=== PATIENT | female | born 1950 | race Caucasian/White ===

== ENCOUNTER → 2016-12-12 | Day surgery (SDC) | payer OTHER ==
[2016-11-21 14:49] VITALS: Ht 164.5 cm; Wt 68.2 kg
[~2016-12-12] VITALS: Ht 164.5 cm; Wt 68.2 kg
[~2016-12-12] MED LIST: ASCA500 PO; ASPI81TA28 PO; ATROPINE SULFATE 0.1 MG/ML 5ML SYR IV PRN; BIOTCAP2 PO; BUPIVACAINE/EPINEPHRINE 0.25% 1:200,000 30 ML VIAL ONE; CALC500T83 PO; CEFAZOLIN 2000 MG/60 ML D5W IV SCH; CHOL1000 PO; EpHEDrine SULFATE INJ 50 MG/ML AMP IV PRN; EpINEphrine INJ 1MG/ML AMP 1 MG/ML AMP ONE; FENTANYL CITRATE INJ 50 MCG/1 ML 2 ML VIAL IV PRN; FENTANYL CITRATE INJ 50 MCG/1 ML 2 ML VIAL ONE; KETO10TA PO; LACTATED RINGER'S 1000ML 1,000 ML IV SCH; LEVO75TA5 PO; LIDOCAINE HCL 2% 2 ML VIAL (20MG/ML) ONE; METHYLPREDNISOLONE ACETATE 80 MG/ML VIAL ONE; MIDAZOLAM HCL 1 MG/ML 2ML VIAL ONE; OMEG10007 PO; ONDANSETRON INJ 2 MG/ML 2 ML VIAL IV PRN; OXYC-57 PO; OXYCODONE/ACETAMINOPHEN 5-325 TAB PO PRN; PROPOFOL IV EMULSION 10 MG/ML 20 ML VIAL IV ONE; ROPIVACAINE 0.5% 5 MG/ML 30 ML VIAL ONE; SODIUM CHLORIDE 0.9% 1000ML 1,000 ML IV SCH
--- NOTE | 2016-12-12 09:22 | History & Physical Bridge - [place] ---
H&P Re-Evaluation Bridge Note: I have examined the patient, reviewed the History & Physical and in the interval since the performance of the History & Physical I have noted the following changes of clinical significance: No changes noted
[2016-12-12 12:08] VITALS: TEMP 36.6
--- NOTE | 2016-12-12 12:08 | Discharge Instructions-SurgCtr ---
Discharge Instructions Date of Service Dec 12, 2016. Visit Reason for Visit: Right Shoulder Adhesive Capsulitis, Pain Discharge Discharge Diagnosis / Problem: SAME ASBOVE Discharge Goals Goal(s): Decrease discomfort, Improve function Medications Stopped Medications Name(s): Pt. was told not to take any ASA or Nsaids or Fish Oil before surgery. Restart Stopped Medication(s): MAY RESTART WHEN FINISHED WITH TORADOL Activity Recommendations Activity Limitations: as noted below Lifting Limitations: gradually increase as tolerated Exercise/Sports Limitations: gradually increase as tolerated Driving or Machine Use: WHEN OUT OF THE SLING Anesthesia . Post Anesthesia Instructions: If you have had General Anesthesia or IV Sedation: * Do not drive today. * Resume driving when surgeon permits. * Do not make important decisions or sign legal documents today. * Call surgeon for: 1. Temperature elevations greater than 101 degrees F. 2. Uncontrollable pain. 3. Excessive bleeding. 4. Persistent nausea and vomiting. 5. Medication intolerance (nausea, vomiting or rash). * For nausea and vomiting use only clear liquids such as: tea, soda, bouillon until nausea subsides, then gradually increase diet as tolerated. * If you have any concerns or questions, call your surgeon's office. If physician is unavailable and it is an emergency, call 911 or go to the nearest emergency room. . Instructions / Follow-Up Instructions / Follow-Up MEDICATIONS: * Resume previous medications unless instructed otherwise by your surgeon. * Always take pain medication on a full stomach or with food to avoid upset stomach. * Do not drink alcohol or drive while taking narcotics. * Ibuprofen or Tylenol may be taken if narcotic not needed. SPECIAL CARE INSTRUCTIONS: __ None _X_ Keep extremity elevated and iced x 48 hours; apply ice 20-30 minutes 8-10 times/day. May remove at night. _X_ Sling ( NEEDED FOR COMFORT) __24 hrs/day __ Remove at night __ Shoulder Immobilizer __ 24 hrs/day __ Remove at night _X_ Dressing __ Maintain until seen in office, may shower with plastic over site _X_ Remove dressings in 24-48 hours and then may shower _X_ Cover incisions with band-aids after showering __ Do not remove steri-strips Call physician if chills or temperature rises above 102 degrees or pain unrelieved by prescribed pain medications at . . Diet Recommendations Home Diet: no limitations Fluid Restriction: None Procedures Procedures Performed: Right Shoulder Arthroscopic Capsular Release Pending Studies Studies pending at discharge: no Work Instructions Lifting Limitations: none Medical Emergencies . Who to Call and When: Medical Emergencies: If at any time you feel your situation is an emergency, please call 911 immediately. . Non-Emergent Contact Non-Emergency issues call your: Primary Care Provider Call Non-Emergent contact if: you have a fever, temperature is above 101.5 . . "Provider Documentation" section prepared by Seth Eid. .
[2016-12-12 12:39] VITALS: BP 119/73; PULSE 60; O2SAT 100
--- NOTE | 2016-12-12 12:46 | Anesthesiology Progress Note ---
Anesthesia Post Op Note Date & Time Dec 12, 2016 at 12:46 Vital Signs Pain Intensity: 0 Vital Signs Past 12 Hours Date Time Temp Pulse Resp B/P (MAP) Pulse Ox O2 Delivery O2 Flow Rate FiO2 12/12/16 12:39 60 16 119/73 (88) 100 Room Air 12/12/16 12:08 36.6 67 18 109/68 (82) 95 Room Air 12/12/16 11:40 0 12/12/16 11:35 54 12/12/16 11:35 54 12 100 12/12/16 11:31 133/75 12/12/16 11:30 58 12/12/16 11:30 57 10 100 12/12/16 11:26 152/84 12/12/16 11:25 65 29 97 12/12/16 11:25 65 12/12/16 11:20 59 0 12/12/16 11:15 61 0 12/12/16 11:10 21 12/12/16 11:10 58 21 12/12/16 08:52 36.6 71 16 138/80 (99) 98 Room Air Notes Mental Status: alert / awake / arousable, participated in evaluation Pt Amnestic to Procedure: Yes Nausea / Vomiting: adequately controlled Pain: adequately controlled Airway Patency, RR, SpO2: stable & adequate BP & HR: stable & adequate Hydration State: stable & adequate Anesthetic Complications: no major complications apparent
--- NOTE | 2016-12-12 13:02 | [facility] Post Operative Brief Note ---
Immediate Operative Summary Operative Date Dec 12, 2016. Pre-Operative Diagnosis Right shoulder adhesive capsulitis Post-Operative Diagnosis Same as preop Procedure(s) Performed Right Shoulder Arthroscopic Capsular Release Surgeon Dr. Kulkarni Driveway Attendant Surgeon(s) Seth Eid PA-C Estimated Blood Loss 5 mL Findings as above Specimens None Complication(s) None Disposition Recovery Room / PACU
--- NOTE | 2016-12-12 13:16 | OPERATIVE REPORT ---
DATE OF OPERATION: 12/12/2016 PREOPERATIVE DIAGNOSIS: Adhesive capsulitis of the right shoulder. POSTOPERATIVE DIAGNOSIS: Same. PROCEDURE: Right shoulder diagnostic arthroscopy with extensive debridement and lysis of adhesions and manipulation under anesthesia. SURGEON: Dr. Vivek Kulkarni. BULK PALLET BUILDER: Seth Eid PA-C, whose assistance was necessary for positioning of the arm and helping with instrumentation. ANESTHESIA: Sedation with a right interscalene nerve block. COMPLICATIONS: None. CONDITION: Stable to PACU. INDICATIONS: Lizz is a 66-year-old female who is an avid pickleball player. She has been noticing increased pain and tightness of her right shoulder. MRI and clinical examination were diagnostic for adhesive capsulitis of the right shoulder. After failing conservative treatment, she elected to undergo arthroscopy. PROCEDURE IN DETAIL: On 12/12/2016, she arrived at [facility] for the above procedure. She was seen in the preoperative holding area and the operative extremity was identified and signed. She was given a preoperative antibiotic and a right interscalene nerve block. She was taken back to the operating room, laid on the table in supine position and given basic sedation. The right shoulder was then prepped and draped in sterile fashion. Time-out was done and the patient and operative extremity was properly identified. On preoperative physical examination, she had about 80 degrees of abduction, 30 degrees of external rotation. Gentle manipulation was done under anesthesia to facilitate insertion of the arthroscope. The scope was then put into the posterior portal. Diagnostic arthroscopy showed no cartilage damage to the humeral head or glenoid. The rotator cuff was intact. The biceps tendon was intact and went through a normal size biceps rita mechanism. There was a lot of redness and scarring within the rotator interval as well as the middle and inferior glenohumeral ligaments. An anterior portal was made. A shaver was used to start debridement of the intraarticular structures. An ablator was then used to do a lysis of adhesions to free up the entire rotator interval back to the base of the coracoid as well as to release the middle and inferior glenohumeral ligaments. Care was taken not to disrupt the axillary nerve or the subscapularis. A shaver was then used to do an extensive debridement to include removing all soft tissue remnants of the capsule and to debride them back to stable margins. The labrum was also debrided. The biceps tendon was pulled into the joint and showed no pathology. Once I was happy with the lysis of adhesions and the overall debridement, the arthroscopic instrument removed from the shoulder and then manipulation was done under anesthesia. I was able to get a little bit more motion out of the shoulder. She had full range of motion in abduction with external and internal rotation. The portal sites were then closed with 3-0 nylon. The glenohumeral joint was then injected with 80 mg of Depo-Medrol and 5 mL of Marcaine. She was then placed in a soft dressing and a regular arm sling. She was then extubated, transferred to a [facility] and taken to the postanesthesia care unit in stable condition. She tolerated the procedure well. I attest to the content of the Intraoperative Record and any orders documented therein. Any exception s are noted below.
== END | disposition home or self-care (01) ==
LOC: X.SURG 08:24
PROVIDERS: ATTEND Orthopaedic Surgery
DX: M75.01 Adhesive capsulitis of right shoulder (principal); E03.9 Hypothyroidism, unspecified; Z82.49 Family history of ischemic heart disease and other diseases of the circulatory system; Z83.3 Family history of diabetes mellitus